=== PATIENT | female | born 1945 | race Caucasian/White ===

== ENCOUNTER 2024-06-24 13:46 | Observation (INO) | payer MEDICARE, OTHER ==
[~2024-06-24 13:46] MED LIST: Iopamidol 370 76% 100 ML VIAL ONE
[2024-06-24 15:03] LABS: #Basophils Less than 0.03 10x3/uL (0.0-0.2); %Basophils 0.2 % (0.0-1.0); %Eosinophils 4.1 % (0.0-10.0); %Lymphocytes 13.1 % (21.0-51.0); %Neutrophils 77.3 % (42.0-75.0); Hematocrit 38.9 % (36.0-47.0); Hemoglobin 12.9 g/dL (12.0-16.0); Mean Corpuscular HGB CONC 33.2 g/dL (32.0-36.0); Mean Corpuscular Hemoglobin 32.9 pg (27.0-31.0); Mean Corpuscular Volume 99.2 fL (78.0-98.0); Mean Platelet Volume 10.5 fL (7.4-10.4); Platelet Count 221 10x3/uL (130-400); RBC Distribution Width 15.5 % (11.5-14.5); Red Blood Cell (RBC) Count 3.92 mill/uL (4.20-5.40)
[2024-06-24 15:18] LABS: Bacteria/HPF None Seen HPF (None Seen); Bilirubin Negative (Negative); Blood, Urine Negative (Negative); CAUTI Indications for Culture Dysuria,urgency,freq; Clarity Clear (Clear); Glucose, Urine (Dipstick) Normal (Negative); Ketone, Urine Negative (Negative); Leukocyte Negative Leu/uL (Negative); Nitrite Negative (Negative); Protein, Urine (Dipstick) 30 mg/dL (Neg-Trace); RBC/HPF 0-3 HPF (0-3); Specific Gravity, Urine 1.008 (1.002-1.036); Squamous Epithelial 0-3 HPF (0-3); Urobilinogen Normal mg/dL (Less than 2); WBC/HPF 0-3 HPF (0-3); pH, Urine 6.5 (5.0-9.0)
[2024-06-24 15:22] LABS: ALT (SGPT) 8 U/L (8-55); AST (SGOT) 16 U/L (5-34); Alkaline Phosphatase 91 U/L (40-110); Anion Gap 12 mmol/L (10-20); BUN (Urea Nitrogen) 16 mg/dL (9.8-20.1); Bilirubin, Total 0.7 mg/dL (0.2-1.2); Calc. Creatinine Clearance 0 mL/min (70-130); Calcium 10.4 mg/dL (7.8-10.44); Carbon Dioxide 32 mmol/L (23-31); Chloride 101 mmol/L (98-107); Estimated GFR 36; Glucose 143 mg/dL (83-110); Lipase 46 U/L (8-78); Magnesium 2.2 mg/dL (1.6-2.6); Potassium 3.6 mmol/L (3.5-5.1); Sodium 141 mmol/L (136-145)
[2024-06-24 15:24] LABS: Urine Culture Reflex No No
[2024-06-24 15:26] LABS: Troponin I 0.031 ng/mL (< 0.028)
[2024-06-24] MEDS ORDERED: Insulin Lispro 100 UNIT/ML 10 ML VIAL SC PRN (18:34)
[2024-06-24] MEDS ORDERED: Dextrose 5% in Water 1,000 ML IV PRN (18:34)
[2024-06-24] MEDS ORDERED: Glucagon 1 MG/ML KIT IM PRN (18:34)
[2024-06-24] MEDS ORDERED: Dextrose 50% Abboject 50 ML SYRINGE SLOW IVP PRN (18:34)
[2024-06-24 19:03] LABS: Troponin I 0.013 ng/mL (< 0.028)
[2024-06-24 19:17] LABS: Hemoglobin A1c 5.6 % (4.0-6.0)
[2024-06-24 20:44] VITALS: BMI 25.7
[2024-06-24 21:33] LABS: Troponin I 0.048 ng/mL (< 0.028)
[2024-06-24] MEDS: Aspirin 325 mg Enteric Coated Tablet PO SCH (21:59)
[2024-06-24] MEDS: Furosemide 80 MG TAB PO SCH (21:59)
[2024-06-24] MEDS: hydrALAZINE 20 MG/ML VIAL SLOW IVP PRN (22:00)
[2024-06-24] MEDS: Carvedilol 25 MG TAB PO SCH (22:00)
[2024-06-24] MEDS: Enoxaparin 30 MG (0.3 mL) SYRINGE SC SCH (22:01)
[2024-06-24 23:18] LABS: Troponin I 0.043 ng/mL (< 0.028)
[2024-06-25 00:45] LABS: Bacteria/HPF 1+ HPF (None Seen); Bilirubin Negative (Negative); Blood, Urine Negative (Negative); Clarity Clear (Clear); Glucose, Urine (Dipstick) Normal (Negative); Ketone, Urine Negative (Negative); Leukocyte 75 Leu/uL (Negative); Nitrite Negative (Negative); Protein, Urine (Dipstick) 100 mg/dL (Neg-Trace); RBC/HPF 0-3 HPF (0-3); Renal Epithelial 0-3 HPF (None Seen); Specific Gravity, Urine 1.019 (1.002-1.036); Squamous Epithelial 0-3 HPF (0-3); Urobilinogen Normal mg/dL (Less than 2); pH, Urine 7.5 (5.0-9.0)
[2024-06-25] MEDS: Atorvastatin Calcium 40 MG TAB PO SCH (03:42)
[2024-06-25 04:22] LABS: #Basophils Less than 0.03 10x3/uL (0.0-0.2); %Basophils 0.1 % (0.0-1.0); %Eosinophils 0.5 % (0.0-10.0); %Lymphocytes 8.1 % (21.0-51.0); %Monocytes 3.2 % (0.0-10.0); %Neutrophils 87.8 % (42.0-75.0); Hematocrit 37.2 % (36.0-47.0); Hemoglobin 12.2 g/dL (12.0-16.0); Mean Corpuscular HGB CONC 32.8 g/dL (32.0-36.0); Mean Corpuscular Hemoglobin 32.4 pg (27.0-31.0); Mean Corpuscular Volume 98.7 fL (78.0-98.0); Mean Platelet Volume 10.8 fL (7.4-10.4); Platelet Count 209 10x3/uL (130-400); RBC Distribution Width 15.8 % (11.5-14.5); Red Blood Cell (RBC) Count 3.77 mill/uL (4.20-5.40)
[2024-06-25 04:45] LABS: ALT (SGPT) 7 U/L (8-55); AST (SGOT) 15 U/L (5-34); Albumin 3.6 g/dL (3.4-4.8); Alkaline Phosphatase 81 U/L (40-110); Anion Gap 14 mmol/L (10-20); BUN (Urea Nitrogen) 17 mg/dL (9.8-20.1); Bilirubin, Total 0.8 mg/dL (0.2-1.2); Calc. Creatinine Clearance 35 mL/min (70-130); Calcium 10.4 mg/dL (7.8-10.44); Carbon Dioxide 29 mmol/L (23-31); Chloride 103 mmol/L (98-107); Estimated GFR 41; Globulin 3.4 g/dL (2.4-3.5); Glucose 200 mg/dL (83-110); Potassium 3.4 mmol/L (3.5-5.1); Sodium 143 mmol/L (136-145)
[2024-06-25] MEDS: Ondansetron ODT 4 MG TAB PO PRN (08:32)
[2024-06-25] MEDS ORDERED: Aspirin 325 mg Enteric Coated Tablet PO SCH (09:00)
[2024-06-25] MEDS ORDERED: Amlodipine 5 MG TAB PO SCH (09:00)
[2024-06-25] MEDS: Aspirin 81 mg Enteric Coated Tablet PO SCH (09:53)
[2024-06-25] MEDS: Amlodipine 5 MG TAB PO SCH (09:56)
[2024-06-25 12:33] VITALS: BP 145/66; TEMP 98
[2024-06-25] MEDS ORDERED: Atorvastatin Calcium 40 MG TAB PO SCH ×2 (21:00)
== END 2024-06-25 13:17 | disposition home or self-care (01) ==
LOC: ERS 13:46 → 2SE 18:11
PROVIDERS: ADMIT Family Medicine; ATTEND Family Medicine
DX: G45.9 Transient cerebral ischemic attack, unspecified (principal); R41.82 Altered mental status, unspecified; R53.1 Weakness; E11.22 Type 2 diabetes mellitus with diabetic chronic kidney disease; I13.0 Hypertensive heart and chronic kidney disease with heart failure and stage 1 through stage 4 chronic kidney disease, or unspecified chronic kidney disease; N18.32 Chronic kidney disease, stage 3b; I50.9 Heart failure, unspecified; I25.10 Atherosclerotic heart disease of native coronary artery without angina pectoris; E78.5 Hyperlipidemia, unspecified; Z87.891 Personal history of nicotine dependence; Z79.899 Other long term (current) drug therapy
CPT/HCPCS: 70450; 71045; 74177; 80053; 80061; 81001 ×2; 82962; 83036; 83605; 83690; 83735; 83880; 84484 ×2; 85025; 93005; 93306; 93880; 97116; 99285; J0360 ×2; J1650; Q0162; 36415; 36416; 84443; 96372; 96374; G0378; Q9967